=== PATIENT | male | born 1940 | race Caucasian/White ===

== ENCOUNTER 2022-01-31 03:31 | Inpatient (IN) | payer MEDICARE ==
[~2022-01-31] VITALS: Ht 172.7 cm; Wt 74.8 kg
--- NOTE | 2022-01-31 04:04 | NUR ---
Dr Lion at bedside MSE in progress
--- NOTE | 2022-01-31 04:05 | NUR ---
Patient is a/ox4, NAD noted.
[2022-01-31] MEDS ORDERED: LIDOCAINE 1%-EPI 1:100,000 20 ML VIAL ONE (04:29)
[2022-01-31] MEDS ORDERED: ATOR20TA PO (04:31)
[2022-01-31] MEDS ORDERED: TERA5CAP4 PO (04:31)
[2022-01-31] MEDS ORDERED: FINA5TAB11 PO (04:31)
[2022-01-31] MEDS ORDERED: QUIN40TA14 PO (04:31)
[2022-01-31] MEDS ORDERED: LIDOCAINE 1%-EPI 1:100,000 20 ML VIAL IJ ONE (04:45)
[2022-01-31] MEDS ORDERED: TDAP DIPH,PERTUSS,TET VAC/PF 0.5 ML DISP.SYRIN IM ONE (04:45)
[2022-01-31 04:47] LABS: CARBON DIOXIDE 24 mmol/L (21-32); CHLORIDE 103 mmol/L (98-107); GLUCOSE 104 mg/dL (74-106); UREA NITROGEN, BLOOD 23 mg/dL (7-18)
[2022-01-31 04:57] LABS: ALANINE AMINOTRANSFERASE 26 U/L (16-63); ALKALINE PHOSPHATASE 79 U/L (50-136); ASPARTATE AMINOTRANSFERASE 22 U/L (15-37); BILIRUBIN,DIRECT 0.2 mg/dL (0.0-0.2); BILIRUBIN,TOTAL 0.9 mg/dL (0.2-1.0); TOTAL PROTEIN, SERUM 6.8 g/dL (6.4-8.2)
[2022-01-31] MEDS ORDERED: ACETAMINOPHEN 325 MG TABLET PO PRN (05:00)
[2022-01-31] MEDS ORDERED: TEMAZEPAM 15 MG CAPSULE PO PRN (05:00)
[2022-01-31] MEDS ORDERED: REMEDY ESSENTIAL ZINC PASTE 113 GM TP PRN (05:00)
[2022-01-31] MEDS ORDERED: MAGNESIUM HYDROXIDE 30 ML LIQUID UDC PO PRN (05:00)
[2022-01-31] MEDS ORDERED: MORPHINE SULFATE 2 MG/1 ML DISP.SYRIN IV PRN (05:00)
[2022-01-31] MEDS ORDERED: IV NS 1000 ML 1,000 ML IV PRN (05:00)
[2022-01-31] MEDS ORDERED: ONDANSETRON 4 MG/2 ML VIAL IV PRN (05:00)
[2022-01-31] MEDS ORDERED: HYDROCODONE/APAP 5-325MG TABLET PO PRN (05:00)
--- NOTE | 2022-01-31 05:08 | NUR ---
Called third floor for bed, spoke with Melissa PONCEcharge preparation technician nurse. No beds available.
[2022-01-31 05:30] LABS: HEMATOCRIT 45.9 % (36.7-47.1); MEAN CORPUSCULAR VOLUME 91.5 fL (73.0-96.2); PLATELET COUNT (AUTO) 185 K/uL (152-348)
--- NOTE | 2022-01-31 06:31 | NUR ---
Melissa broker in charge called, patient will be transfered to room 321
[2022-01-31] MEDS ORDERED: PANTOPRAZOLE SODIUM 40 MG TABLET.DR PO SCH (07:00)
--- NOTE | 2022-01-31 07:30 | NUR ---
Received report from table games shift manager. Pt resting with NAD noted at this time. Pending admission to Tele.
--- NOTE | 2022-01-31 09:00 | NUR ---
SBAR report given to ROSARIO Mccarthy and pt trans to tele room 321.
--- NOTE | 2022-01-31 09:15 | NUR ---
RECEIVED FOR ADMISSION 81 YEARS OLD MALE FROM ED WITH DX OF SYNCOPE PLACED INTO BED FIXED AND MADE COMFORTABLE PATIENT IS ALERT AND ORIENTED ASSISTED WITH ADMISSION GREGORIOVin DENIES DISCOMFORTS AT THIS TIME ORIENTED TO ROOM AND FACILITY PROTOCOL MADE COMFORTABLE WILL CONTINUE TO OBSERVE.
[2022-01-31 10:38] VITALS: BP 118/55
[2022-01-31 10:41] VITALS: BP_SYST 121; BP_SYST 125; BP_SYST 130; BP_DIAS 50; BP_DIAS 62
--- NOTE | 2022-01-31 14:12 | NUR ---
PATIENT SEEN BY SAIRA ASTUDILLO WITH ORDER TO DISCHARGE HOME AFTER ECHO COMPLETED PATIENT AWARE WILL PREP HIM FOR DISCHARGE.
--- NOTE | 2022-01-31 16:00 | NUR ---
2 D ECHO COMPLETED AND PATIENT IS BEING PREPPED FOR DISCHARGE AND HE STATED THAT HIS SON IN LAW WILL PICK HIM UP SOON POSSIBLE.
[2022-01-31 16:17] VITALS: BP 116/78
--- NOTE | 2022-01-31 17:43 | NUR ---
DISCHARGE INSTRUCTIONS GIVEN TO PATIENT AND HE WAS INSTRUCTED TO CALL FOR A FOLLOW UP APPOINTMENT WITH HIS PRIMARY DOCTOR WITHIN THE NEXT ONE WEEK AND TO STAY HYDRATED AND HE EXPRESSED UNDERSTANDING AWAITING FOR HIS RIDE AND HE STATED THAT HE IS ON THE WAY RIGHT NOW.
--- NOTE | 2022-01-31 18:05 | NUR ---
PATIENTS SON IN LAW HERE AND PATIENT ESCORTED DOWN VIA W/CHAIR WITH ALL HIS PERSONAL BELONGINGS IN SATISFACTORY CONDITION.
== END 2022-01-31 18:05 | disposition home or self-care (01) | DRG 641 ==
LOC: ER 03:38 → TELE3 04:35
PROVIDERS: ADMIT Nurse Practitioner Acute Care; ATTEND Nurse Practitioner Acute Care
DX: E86.0 Dehydration (principal); N17.9 Acute kidney failure, unspecified; C85.10 Unspecified B-cell lymphoma, unspecified site; I45.2 Bifascicular block; R55 Syncope and collapse; I10 Essential (primary) hypertension; E78.5 Hyperlipidemia, unspecified; Z85.46 Personal history of malignant neoplasm of prostate; I49.3 Ventricular premature depolarization; W18.30XA Fall on same level, unspecified, initial encounter; Y93.9 Activity, unspecified; Y92.008 Other place in unspecified non-institutional (private) residence as the place of occurrence of the external cause
CPT/HCPCS: 36415; 70160; 70450; 71045; 83605; 84484; 85025; 85730; 87040; 90715; 93005; 93307; A4663; G0378; J3490; J7040